=== PATIENT | male | born 1985 | race Caucasian/White ===

== ENCOUNTER 2018-04-07 11:13 | Emergency (ER) | payer SELFPAY ==
[~2018-04-07] VITALS: Ht 172.7 cm; Wt 79.8 kg
--- NOTE | 2018-04-07 11:32 | PHYS DOC ---
Adult General Chief Complaint Chief Complaint: LACERATION/AVULSION HPI HPI 32-year-old male presents with left thumb laceration. 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 Patient had immediate bleeding. His been difficult to control the bleeding with just gauze. Patient denies any other lacerations or injuries. He does not know his last tetanus was. He denies fever or chills. Review of Systems Review of Systems Constitutional: Denies fever or chills [] Eyes: Denies change in visual acuity, redness, or eye pain [] HENT: Denies nasal congestion or sore throat [] Respiratory: Denies cough or shortness of breath [] Cardiovascular: No additional information not addressed in HPI [] GI: Denies abdominal pain, nausea, vomiting, bloody stools or diarrhea [] : Denies dysuria or hematuria [] Musculoskeletal: Denies back pain or joint pain [] Integument: Left thumb laceration[] Neurologic: Denies headache, focal weakness or sensory changes [] Endocrine: Denies polyuria or polydipsia [] All other systems were reviewed and found to be within normal limits, except as documented in this note. Physical Exam Physical Exam Constitutional: Well developed, well nourished, no acute distress, non-toxic appearance. [] HENT: Normocephalic, atraumatic, bilateral external ears normal, oropharynx moist, no oral exudates, nose normal. [] Eyes: PERRLA, EOMI, conjunctiva normal, no discharge. [] Neck: Normal range of motion, no tenderness, supple, no stridor. [] Cardiovascular:Heart rate regular rhythm, no murmur [] Lungs & Thorax: Bilateral breath sounds clear to auscultation [] Abdomen: Bowel sounds normal, soft, no tenderness, no masses, no pulsatile masses. [] Skin: Warm, dry, no erythema, no rash. [] Back: No tenderness, no CVA tenderness. [] Extremities: Left thumb laceration, semicircular shape, 3 cm in length. No obvious foreign body[] Neurologic: Alert and oriented X 3, normal motor function, normal sensory function, no focal deficits noted. [] Psychologic: Affect normal, judgement normal, mood normal. [] EKG EKG [] Radiology/Procedures Radiology/Procedures [] Course & Med Decision Making Course & Med Decision Making Pertinent Labs and Imaging studies reviewed. (See chart for details) The patient's laceration did not have any foreign material. It was repaired without consultation. See procedure note for more details. The patient was out of date on his tetanus so a tetanus shot was given. He is stable for discharge at this time. [] Dragon Disclaimer Dragon Disclaimer This electronic medical record was generated, in whole or in part, using a voice recognition dictation system. Laceration Repair Lac Repair Indication: [Thumb laceration. Verbal consent was obtained from the patient for suture repair of the laceration. The correct site and procedure was agreed to by myself, the nurse, and the patient.] Procedure: The patient was placed in the appropriate position and the wound was to it with normal saline Hibiclens mixture. I then anesthetized the wound with 2 % lidocaine injected through the wound margins. A total of 2 mL was used.. The laceration was closed with 4 interrupted 4-0 Ethilon sutures. The wound area was then dressed with antibiotic ointment and a clean gauze dressing. Total repaired wound length: 3 cm. Other Items: None The patient tolerated the procedure well. Complications: None. Departure Departure: Referrals: PCP,PRATIK (PCP) LANIE LEONARD DO Apr 07, 2018 11:32
[2018-04-07 11:34] VITALS: BP 145/93
[2018-04-07] MEDS ORDERED: LIDOCAINE 2% VISCOUS 15 ML SOLUTION. ONE (11:42)
[2018-04-07] MEDS ORDERED: LIDOCAINE 2% 20 ML VIAL. ONE (11:43)
[2018-04-07] MEDS ORDERED: LIDOCAINE 1% 50 ML VIAL. INJ ONE (11:45)
[2018-04-07] MEDS ORDERED: DIPHTH,PERTUSS(ACELL),TET TOX 0.5 ML DISP.SYRIN. VAX IM ONE (11:45)
[2018-04-07] MEDS ORDERED: LIDOCAINE 2% 20 ML VIAL. IJ ONE (12:00)
== END 2018-04-07 12:39 | disposition home or self-care (01) ==
LOC: ER 11:13
DX: S61.012A Laceration without foreign body of left thumb without damage to nail, initial encounter (principal); W26.0XXA Contact with knife, initial encounter; Y93.89 Activity, other specified; Y92.512 Supermarket, store or market as the place of occurrence of the external cause; Y99.0 Civilian activity done for income or pay
CPT/HCPCS: 12002; 90471; 90715; 99283-25; J2001

== ENCOUNTER 2018-04-14 15:56 | Emergency (ER) | payer OTHER ==
--- NOTE | 2018-04-14 16:20 | PHYS DOC ---
Past History Past Medical History: Diabetes Past Surgical History: No Surgical History Alcohol Use: None Drug Use: None Adult General Chief Complaint Chief Complaint: SUTURE/STAPLE REMOVAL [facility] Patient is a 32 year old male who presents for suture removal of left thumb that was placed in this emergency room on April 07. Patient denies any pain or discharge or fever/ chills. Review of Systems Review of Systems Constitutional: Denies fever or chills [] Eyes: Denies change in visual acuity, redness, or eye pain [] HENT: Denies nasal congestion or sore throat [] Respiratory: Denies cough or shortness of breath [] Cardiovascular: No additional information not addressed in [facility] [] GI: Denies abdominal pain, nausea, vomiting, bloody stools or diarrhea [] : Denies dysuria or hematuria [] Musculoskeletal: Denies back pain or joint pain [] Integument: Denies rash or skin lesions [] Neurologic: Denies headache, focal weakness or sensory changes [] Endocrine: Denies polyuria or polydipsia [] All other systems were reviewed and found to be within normal limits, except as documented in this note. Allergies Allergies Allergies Coded Allergies Type Severity Reaction Last Updated Verified No Known Drug Allergies 04/07/18 No Physical Exam Physical Exam Constitutional: Well developed, well nourished, no acute distress, non-toxic appearance. [] HENT: Normocephalic, atraumatic Eyes: PERRLA, EOMI, conjunctiva normal, no discharge. [] Neck: Normal range of motion, no tenderness, supple, no stridor. [] Cardiovascular:Heart rate regular rhythm, no murmur [] Lungs & Thorax: Bilateral breath sounds clear to auscultation [] Skin: Warm, dry, no erythema, no rash. [] Back: No tenderness, no CVA tenderness. [] Extremities: No tenderness, no cyanosis, no clubbing, ROM intact, no edema, left thumb with 4 sutures without sign of infection Neurologic: Alert and oriented X 3, normal motor function, normal sensory function, no focal deficits noted. [] Psychologic: Affect normal, judgement normal, mood normal. [] EKG EKG [] Radiology/Procedures Radiology/Procedures [] Course & Med Decision Making Course & Med Decision Making Patient presented to ER for suture removal in left thumb without sign of infection. 4 sutures was removed by HOOP RIVETERRN. Morenoon Disclaimer Bradley Disclaimer This electronic medical record was generated, in whole or in part, using a voice recognition dictation system. Departure Departure: Impression: Primary Impression: Encounter for removal of sutures Disposition: HOME, SELF-CARE (at 1620) Condition: STABLE Referrals: PCP,NO (PCP) Patient Instructions: Suture Removal RADHA LEDESMA MD Apr 14, 2018 16:20
[2018-04-14 16:30] VITALS: BP 199/70
== END 2018-04-14 16:38 | disposition home or self-care (01) ==
LOC: ER 15:56
DX: S61.012D Laceration without foreign body of left thumb without damage to nail, subsequent encounter (principal); E11.9 Type 2 diabetes mellitus without complications; X58.XXXD Exposure to other specified factors, subsequent encounter
CPT/HCPCS: 99283

== ENCOUNTER 2020-04-30 23:34 | Emergency (ER) | payer BC, OTHER ==
[~2020-04-30] VITALS: Ht 170.2 cm; Wt 84.9 kg
[2020-05-01 00:28] VITALS: BP 106/61
[2020-05-01] MEDS ORDERED: ONDANSETRON ODT 4 MG TAB.RAPDIS PO ONE (01:00)
--- NOTE | 2020-05-01 01:00 | PHYS DOC ---
Past History Past Medical History: Diabetes, Hypertension Past Surgical History: No Surgical History Smoking: Cigarettes Alcohol Use: None Drug Use: None General Adult EDM: Chief Complaint: NAUSEA/VOMITING/DIARRHEA HPI: HPI: ".. I worried I am having hypoglycemia from an Insulin over dose.... I was nauseated.. and I was working at [employer].. I ve been increasing my insulin.. but now I am not sure if I am doing it like Dr. Davis told me.. .. I last took my insulin on saturday.." but it is long acting and I am worried I over dosed..." Patient is a 34 year old male who presents with above hx and concerned he may have over dosage of insulin on saturday. Pt. follows with Dr. Davis. Glucose in ED was 261. Patient admits that he is not very compliant and regular with his diet. Patient has been increasing his insulin dosages at per Dr. Davis instruction but has become concerned he has not been increasing and correctly and has overdosed. No recent travel. No specific ill contacts. Patient has had some nausea. No history of bad food intake no history immunosuppression. Patient has been diabetic for years. Patient does smoke. Patient does have a history of hypertension. Review of Systems: Review of Systems: Constitutional: Denies fever or chills Eyes: Denies change in visual acuity HENT: Denies nasal congestion or sore throat Respiratory: Denies cough or shortness of breath Cardiovascular: Denies chest pain or edema GI: Complains of nausea, patient denies vomiting, bloody stools or diarrhea : Denies dysuria Musculoskeletal: Denies back pain or joint pain Integument: Denies rash Neurologic: Denies headache, focal weakness or sensory changes Endocrine: Denies polyuria or polydipsia Lymphatic: Denies swollen glands Psychiatric: Denies depression or anxiety Family History: Family History: Diabetes and hypertension Current Medications: Current Meds: See nursing for home meds Allergies: Allergies: Allergies Coded Allergies Type Severity Reaction Last Updated Verified No Known Drug Allergies 04/07/18 No Physical Exam: PE: Constitutional: Well developed, no acute distress, non-toxic appearance. [] HENT: Normocephalic, atraumatic, bilateral external ears normal, oropharynx moist, no oral exudates, nose normal. [] Eyes: PERRLA, EOMI, conjunctiva normal, no discharge. [] Neck: Normal range of motion, no tenderness, supple, no stridor. [] Cardiovascular:Heart rate regular rhythm, no murmur [] Lungs & Thorax: Bilateral breath sounds equal apex with scattered wheezes auscultation [] Abdomen: Bowel sounds normal, soft, no tenderness, no masses, no pulsatile masses. [] Skin: Warm, dry, no erythema, no rash. Tattoos. Back: No tenderness, no CVA tenderness. [] Extremities: No tenderness, no cyanosis, no clubbing, ROM intact, no edema. [] Abrasion right knee Neurologic: Alert and oriented X 3, normal motor function, normal sensory function, no focal deficits noted. [] Psychologic: Affect anxious, judgement normal, mood normal. [] Current Patient Data: Labs: Laboratory Tests Test 05/01/20 00:37 Glucose (Fingerstick) 261 mg/dL (70-99) H Vital Signs: Vital Signs Date Time Temp Pulse Resp B/P (MAP) Pulse Ox O2 Delivery O2 Flow Rate FiO2 05/01/20 00:28 97.9 94 16 106/61 (76) 98 Room Air EKG: EKG: [] Radiology/Procedures: Radiology/Procedures: [] Heart Score: Risk Factors: Risk Factors: DM, Current or recent (<one month) smoker, HTN, HLP, family history of CAD, obesity. Risk Scores: Score 0 - 3: 2.5% MACE over next 6 weeks - Discharge Home Score 4 - 6: 20.3% MACE over next 6 weeks - Admit for Clinical Observation Score 7 - 10: 72.7% MACE over next 6 weeks - Early Invasive Strategies Course & Med Decision Making: Course & Med Decision Making Pertinent Labs and Imaging studies reviewed. (See chart for details) Patient encouraged to call Dr. Davis and review the current treatment plan. Patient is resume previous insulin dosages before he started increasing incremental doses. Check glucose levels 4 times a day and document this and a notebook and show this to Dr. Davis. Patient developed a regular diet, because even if he takes his insulin correctly, if he does not maintain a regular diet it will be difficult to achieve stable glucose levels. Patient encouraged to return if any concerns. Patient encouraged to get flu vaccinatio n. Patient encouraged to wear a mask covering his nose and mouth anytime he is at work. Patient return if any concerns. Patient encouraged not to smoke. Impression: 1. Hx. of DM 2. Hx. HTN 3. Concerned He Over dosage of his long acting Insulin. [] Dragon Disclaimer: Dragon Disclaimer: This electronic medical record was generated, in whole or in part, using a voice recognition dictation system. Departure Departure: Disposition: 01 DC HOME SELF CARE/HOMELESS Condition: STABLE Referrals: KENDALL DAVIS MD (PCP) Bradley Disclaimer This chart was dictated in whole or in part using Voice Recognition software in a busy, high-work load, and often noisy Emergency Department environment. It may contain unintended and wholly unrecognized errors or omissions. Dragon Disclaimer This chart was dictated in whole or in part using Voice Recognition software in a busy, high-work load, and often noisy Emergency Department environment. It may contain unintended and wholly unrecognized errors or omissions. ESTEE HAGAN MD May 01, 2020 01:00
[2020-05-01] MEDS ORDERED: ONDANSETRON ODT 4 MG TAB.RAPDIS ONE (01:03)
== END 2020-05-01 01:10 | disposition home or self-care (01) ==
LOC: ER 23:34
DX: E11.649 Type 2 diabetes mellitus with hypoglycemia without coma (principal); R11.0 Nausea; R06.2 Wheezing; I10 Essential (primary) hypertension; F17.210 Nicotine dependence, cigarettes, uncomplicated
CPT/HCPCS: 82947; 99283; Q0162

== ENCOUNTER 2021-06-23 16:04 | Emergency (ER) | payer BC ==
[~2021-06-23] VITALS: Ht 170.2 cm; Wt 86.8 kg
[2021-06-23] MEDS ORDERED: MORPHINE SULFATE 2 MG/ML DISP.SYRIN. IV/SQ PRN (18:30)
[2021-06-23] MEDS ORDERED: ASPIRIN 325 MG TABLET PO ONE (18:30)
[2021-06-23] MEDS ORDERED: NITROGLYCERIN SUBLINGUAL 0.4 MG BOTTLE OF 25. SL PRN (18:30)
[2021-06-23 19:07] LABS: BASO % 0 % (0-3); EOS # 0.1 x10^3/uL (0.0-0.7); EOS % 1 % (0-3); HEMATOCRIT 44.6 % (39.0-53.0); HEMOGLOBIN 14.9 g/dL (13.0-17.5); LYMPH # 1.8 x10^3/uL (1.0-4.8); LYMPH % 19 % (24-48); MEAN CORPUSCULAR HEMOGLOBIN 29 pg (25-35); MEAN CORPUSCULAR HGB CONC 34 g/dL (31-37); MEAN CORPUSCULAR VOLUME 86 fL (79-100); MONO # 0.7 x10^3/uL (0.0-1.1); MONO % 7 % (0-9); NEUT # 7.1 x10^3uL (1.8-7.7); NEUT % 73 % (31-73); PLATELET COUNT 269 x10^3/uL (140-400); RED BLOOD COUNT 5.17 x10^6/uL (4.30-5.70); RED CELL DISTRIBUTION WIDTH 13.3 % (11.5-14.5); WHITE BLOOD COUNT 9.7 x10^3/uL (4.0-11.0)
[2021-06-23 19:08] LABS: CALCIUM 8.3 mg/dL (8.5-10.1); CREATININE 0.9 mg/dL (0.7-1.3); GFR 95.5
[2021-06-23 19:26] LABS: ALBUMIN 3.1 g/dL (3.4-5.0); ALBUMIN/GLOBULIN RATIO 0.9 (1.0-1.7); TOTAL BILIRUBIN 0.3 mg/dL (0.2-1.0); TOTAL PROTEIN 6.5 g/dL (6.4-8.2)
[2021-06-23 19:40] LABS: INFLUENZA A PATIENT NEGATIVE (NEGATIVE); INFLUENZA B PATIENT NEGATIVE (NEGATIVE)
--- NOTE | 2021-06-23 20:02 | PHYS DOC ---
Past History Past Medical History: Diabetes, Hypertension (KAYLIE SANTAMARIA APRN) Past Surgical History: Other Additional Past Surgical Histo: HERNIA SURGERY TODDLER (KAYLIE SANTAMARIA APRN) Smoking: Cigarettes Alcohol Use: None Drug Use: None (KAYLIE SANTAMARIA APRN) Adult General Chief Complaint Chief Complaint: MULTIPLE COMPLAINTS HPI HPI Patient is a 35-year-old male patient with history of diabetes type 2, hypertension, who presents to the ED today with multiple complaints. Patient is complaining of a cough, chest pain while coughing rated as mild and intermittent, nonradiating, sore throat, nasal congestion, fatigue, symptoms of been going on for 3 days. Denies any fever. Reports receiving Moderna vaccines. (KAYLIE SANTAMARIA APRN) Review of Systems Review of Systems Constitutional: Reports fatigue. Denies fever or chills [] Eyes: Denies change in visual acuity, redness, or eye pain [] HENT: D reports nasal congestion and sore throat [] Respiratory: Reports cough, denies shortness of breath [] Cardiovascular: No additional information not addressed in HPI [] GI: Denies abdominal pain, nausea, vomiting, bloody stools or diarrhea [] : Denies dysuria or hematuria [] Musculoskeletal: Denies back pain or joint pain [] Integument: Denies rash or skin lesions [] Neurologic: Denies headache, focal weakness or sensory changes [] All other systems were reviewed and found to be within normal limits, except as documented in this note. (KAYLIE SANTAMARIA APRN) Current Medications Current Medications Current Medications Medications (Trade) Dose Ordered Sig/Wood Start Time Stop Time Status Last Admin Dose Admin Aspirin (Niki Aspirin) 325 mg 1X ONCE 06/23/21 18:30 06/23/21 18:31 DC 06/23/21 18:53 325 MG Morphine Sulfate (Morphine 2mg Syringe) 2 mg PRN Q15MIN PRN 06/23/21 18:30 06/24/21 18:29 06/23/21 18:54 2 MG Nitroglycerin (Nitrostat) 0.4 mg PRN Q5MIN PRN 06/23/21 18:30 06/24/21 18:29 06/23/21 18:53 0.4 MG (KAYLIE SANTAMARIA VETERINARY TECHNICIAN INSTRUCTOR) Allergies Allergies Allergies Coded Allergies Type Severity Reaction Last Updated Verified No Known Drug Allergies 06/23/21 No (KAYLIE SANTAMARIA VETERINARY TECHNICIAN INSTRUCTOR) Physical Exam Physical Exam Constitutional: Well developed, well nourished, no acute distress, non-toxic appearance. [] HENT: Normocephalic, atraumatic, bilateral external ears normal, oropharynx moist, no oral exudates, nose normal. [] Eyes: PERRLA, EOMI, conjunctiva normal, no discharge. [] Neck: Normal range of motion, no tenderness, supple, no stridor. [] Cardiovascular:Heart rate regular rhythm, no murmur [] Lungs & Thorax: Bilateral breath sounds clear to auscultation [] Abdomen: Bowel sounds normal, soft, no tenderness, no masses, no pulsatile masses. [] Skin: Warm, dry, no erythema, no rash. [] Back: No tenderness, no CVA tenderness. [] Extremities: No tenderness, no cyanosis, no clubbing, ROM intact, no edema. [] Neurologic: Alert and oriented X 3, normal motor function, normal sensory function, no focal deficits noted. [] Psychologic: Affect normal, judgement normal, mood normal. [] (KAYLIE SANTAMARIA VETERINARY TECHNICIAN INSTRUCTOR) Current Patient Data Vital Signs Vital Signs Date Time Temp Pulse Resp B/P (MAP) Pulse Ox O2 Delivery O2 Flow Rate FiO2 06/23/21 18:54 16 97 Room Air 06/23/21 18:53 95 130/74 06/23/21 17:40 98.2 Lab Results Laboratory Tests Test 06/23/21 18:37 06/23/21 19:00 White Blood Count 9.7 x10^3/uL (4.0-11.0) Red Blood Count 5.17 x10^6/uL (4.30-5.70) Hemoglobin 14.9 g/dL (13.0-17.5) Hematocrit 44.6 % (39.0-53.0) Mean Corpuscular Volume 86 fL (79-100) Mean Corpuscular Hemoglobin 29 pg (25-35) Mean Corpuscular Hemoglobin Concent 34 g/dL (31-37) Red Cell Distribution Width 13.3 % (11.5-14.5) Platelet Count 269 x10^3/uL (140-400) Neutrophils (%) (Auto) 73 % (31-73) Lymphocytes (%) (Auto) 19 % (24-48) L Monocytes (%) (Auto) 7 % (0-9) Eosinophils (%) (Auto) 1 % (0-3) Basophils (%) (Auto) 0 % (0-3) Neutrophils # (Auto) 7.1 x10^3uL (1.8-7.7) Lymphocytes # (Auto) 1.8 x10^3/uL (1.0-4.8) Monocytes # (Auto) 0.7 x10^3/uL (0.0-1.1) Eosinophils # (Auto) 0.1 x10^3/uL (0.0-0.7) Basophils # (Auto) 0.0 x10^3/uL (0.0-0.2) Sodium Level 139 mmol/L (136-145) Potassium Level 4.0 mmol/L (3.5-5.1) Chloride Level 101 mmol/L (98-107) Carbon Dioxide Level 29 mmol/L (21-32) Anion Gap 9 (6-14) Blood Urea Nitrogen 12 mg/dL (8-26) Creatinine 0.9 mg/dL (0.7-1.3) Estimated GFR (Cockcroft-Gault) 95.5 BUN/Creatinine Ratio 13 (6-20) Glucose Level 370 mg/dL (70-99) H Lactic Acid Level 1.1 mmol/L (0.4-2.0) Calcium Level 8.3 mg/dL (8.5-10.1) L Magnesium Level 2.0 mg/dL (1.8-2.4) Total Bilirubin 0.3 mg/dL (0.2-1.0) Aspartate Amino Transferase (AST) 15 U/L (15-37) Alanine Aminotransferase (ALT) 24 U/L (16-63) Alkaline Phosphatase 112 U/L (46-116) Creatine Kinase 298 U/L (39-308) Creatine Kinase MB (Mass) 1.0 ng/mL (0.0-3.6) Creatine Kinase MB Relative Index 0.3 % (0-4) Troponin I High Sensitivity 18 ng/L (4-75) JG-[id number]-Type Natriuretic Peptide 46 pg/mL (0-124) Total Protein 6.5 g/dL (6.4-8.2) Albumin 3.1 g/dL (3.4-5.0) L Albumin/Globulin Ratio 0.9 (1.0-1.7) L Influenza Type A (Rapid) Negative (NEGATIVE) Influenza Type B (Rapid) Negative (NEGATIVE) SARS-CoV-2 Antigen (Rapid) Negative (NEGATIVE) (KAYLIE SANTAMARIA APRN) EKG EKG [address] Ortiz sinus rhythm heart rate 72 leftward axis QRS 82 no STEMI [] (KAYLIE SANTAMARIA APRN) Radiology/Procedures Radiology/Procedures [] (KAYLIE SANTAMARIA APRN) Heart Score C/O Chest Pain: Yes HEART Score for Chest Pain: HEART Score for Chest Pain Response (Comments) Value History Slighlty/Non-Suspicious 0 ECG Normal 0 Age < 45 0 Risk Factors 1 or 2 Risk Factors 1 Troponin < Normal Limit 0 Total 1 Risk Factors: Risk Factors: DM, Current or recent (<one month) smoker, HTN, HLP, family history of CAD, obesity. Risk Scores: Risk Factors: DM, Current or recent (<one month) smoker, HTN, HLP, family history of CAD, obesity. (KAYLIE SANTAMARIA VETERINARY TECHNICIAN INSTRUCTOR) Course & Med Decision Making Course & Med Decision Making Pertinent Labs and Imaging studies reviewed. (See chart for details) This is a 35-year-old male patient presented to the ED today complaining of cough, chest pain on coughing, sore throat, nasal congestion, fatigue, symptoms for 3 days. EKG is negative, troponin is normal. CBC with a normal WBC, CMP with glucose of 370, anion gap is normal, CO2 is normal. History of diabetes type 2. He states he missed his medicines this morning for diabetes. Emphasized the importance of compliance with diabetes treatment. Negative influenza A&B, negative rapid Covid test. Chest x-ray interpreted by Dr. Ortiz negative for any acute findings Patient was discharged home. Follow-up with PCP in 1 week. Supportive care measures recommended. (KAYLIE SANTAMARIA VETERINARY TECHNICIAN INSTRUCTOR) Dragon Disclaimer Dragon Disclaimer This electronic medical record was generated, in whole or in part, using a voice recognition dictation system. (KAYLIE SANTAMARIA VETERINARY TECHNICIAN INSTRUCTOR) Departure Departure: Impression: Primary Impression: Person under investigation for COVID-19 Additional Impressions: Cough URI (upper respiratory infection) Hyperglycemia Disposition: HOME / SELF CARE / HOMELESS Condition: STABLE Referrals: KENDALL DAVIS MD (PCP) FOLLOW UP WITH YOUR DOCTOR NEXT WEEK Patient Instructions: Cough, Adult, [id number], Upper Respiratory Infection, Adult, [id number] Additional Instructions: You were evaluated in the emergency room for symptoms consistent with viral infection. Please take Tylenol or Motrin for pain or fever. You can take [id number] Coricidin for your cough. Push fluids, maintain good and hygiene, quarantine yourself until we will call you with COVID-19 PCR results. Follow-up with your doctor in 1 week. Also ensure you are taking yourdiabetes medicine. Attending Signature Attending Signature I have participated in the care of this patient and I have reviewed and agree with all pertinent clinical information above including history, exam, and recommendations. (ESTEE ORTIZ MD) Problem Qualifiers Additional Impressions: URI (upper respiratory infection) URI type: unspecified URI Qualified Codes: J06.9 - Acute upper respiratory infection, unspecified KAYLIE SANTAMARIA APRN Jun 23, 2021 20:02 ESTEE ORTIZ MD Jun 24, 2021 18:25
[2021-06-23 20:42] VITALS: BP 128/77
--- NOTE | 2021-06-23 22:13 | RAD ---
XR CHEST 1V History: Chest pain Comparison: None. Technique: Portable AP radiograph of the chest. Findings: The lungs are hypoinflated. No focal airspace consolidation, pleural effusion or pneumothorax. Cardia c mediastinal silhouette and pulmonary vasculature are within normal limits. Osseous structures and s oft tissues are unremarkable. Impression: 1. Mild hypoinflation. No acute cardiopulmonary findings. Electronically signed by: Gabe Red MD (06/23/2021 10:10 PM) [facility]
--- NOTE | 2021-06-24 07:05 | EKG ---
[address] [address] Test Date: 2021-06-23 Test Time: 19:22:49 Pat Name: YANIQUE HERNÁNDEZ Department: Room: Gender: M Planner Chief: SHIMON : 1985 Requested By: KAYLIE SANTAMARIA Order Number: [id number] Reading MD: Demetrius Palmer MD Measurements Intervals [place] Rate: 92 P: 25 MT: 132 QRS: 18 QRSD: 82 T: 31 QT: 326 QTc: 408 Interpretive Statements SINUS RHYTHM Electronically Signed On 06-26-2021 13:18:15 COAT OPERATOR by Demetrius Palmer MD
== END 2021-06-23 21:00 | disposition home or self-care (01) ==
LOC: ER 16:08
DX: J06.9 Acute upper respiratory infection, unspecified (principal); E11.65 Type 2 diabetes mellitus with hyperglycemia; I10 Essential (primary) hypertension; F17.210 Nicotine dependence, cigarettes, uncomplicated; Z20.822 Contact with and (suspected) exposure to COVID-19
CPT/HCPCS: 71045; 80053; 82553; 83605; 83735; 83880; 84443; 84484; 85025; 87040; 87426; 87804; 93005; 96374; 99285; C9803; J2270; U0003